=== PATIENT | female | born 1955 | race Caucasian/White ===

== ENCOUNTER 2016-07-03 14:54 | Emergency (ER) | payer OTHER ==
[~2016-07-03] VITALS: Ht 152.4 cm; Wt 59.0 kg
[2016-07-03] MEDS ORDERED: IBUPROFEN 600 MG TABLET ONE (15:13)
[2016-07-03] MEDS ORDERED: IBUPROFEN 600 MG TABLET PO ONE (15:15)
[2016-07-03] MEDS ORDERED: HYDROCODONE/APAP 5-325MG TABLET PO ONE (16:00)
[2016-07-03] MEDS ORDERED: HYDROCODONE/APAP 5-325MG TABLET ONE (16:10)
--- NOTE | 2016-07-03 16:25 | NUR ---
Patient discharged to home in stable conditon. Written and verbal after care instructions given to patient and family. Patient and family verbalized understanding of instructions.
== END 2016-07-03 16:26 | disposition home or self-care (01) ==
LOC: ER 14:58
DX: S42.402A Unspecified fracture of lower end of left humerus, initial encounter for closed fracture (principal); W01.0XXA Fall on same level from slipping, tripping and stumbling without subsequent striking against object, initial encounter; Y93.89 Activity, other specified; Y99.8 Other external cause status; Y92.89 Other specified places as the place of occurrence of the external cause
CPT/HCPCS: 73080; A4663

== ENCOUNTER 2016-07-06 12:07 | Emergency (ER) | payer SELFPAY ==
[~2016-07-06] VITALS: Ht 149.9 cm; Wt 52.2 kg
--- NOTE | 2016-07-06 12:32 | NUR ---
DR MAGUIRE AT THE BEDSIDE FOR EVAL AND EXAM.
[2016-07-06 12:42] VITALS: BP 155/82
--- NOTE | 2016-07-06 12:48 | NUR ---
Patient discharged to home in stable conditon. Written and verbal after care instructions given. Patient verbalizes understanding of instructions.
== END 2016-07-06 12:49 | disposition home or self-care (01) ==
LOC: ER 12:07
DX: S42.402D Unspecified fracture of lower end of left humerus, subsequent encounter for fracture with routine healing (principal); X58.XXXD Exposure to other specified factors, subsequent encounter
CPT/HCPCS: A4663